=== PATIENT | female | born 1995 | race Caucasian/White ===

== ENCOUNTER 2024-11-22 08:39 | Outpatient (CLI) | payer BC ==
[2024-11-22 10:33] LABS: #Basophils 0.03 10x3/uL (0.0-0.2); %Basophils 0.4 % (0.0-1.0); %Eosinophils 1.4 % (0.0-10.0); %Lymphocytes 21.2 % (21.0-51.0); %Monocytes 6.8 % (0.0-10.0); %Neutrophils 70.1 % (42.0-75.0); Hematocrit 44.4 % (36.0-47.0); Hemoglobin 14.5 g/dL (12.0-16.0); Mean Corpuscular HGB CONC 32.7 g/dL (32.0-36.0); Mean Corpuscular Hemoglobin 28.7 pg (27.0-31.0); Mean Corpuscular Volume 87.9 fL (78.0-98.0); Mean Platelet Volume 11.2 fL (7.4-10.4); Platelet Count 269 10x3/uL (130-400); Red Blood Cell (RBC) Count 5.05 mill/uL (4.20-5.40)
[2024-11-22 11:05] LABS: Calc. Creatinine Clearance 0 mL/min (70-130); Estimated GFR 94
[2024-11-22 11:06] LABS: Anion Gap 11 mmol/L (10-20); BUN (Urea Nitrogen) 13 mg/dL (7.0-18.7); Calcium 9.4 mg/dL (7.8-10.44); Carbon Dioxide 24 mmol/L (22-29); Chloride 106 mmol/L (98-107); Glucose 80 mg/dL (70-105); Potassium 3.7 mmol/L (3.5-5.1); Sodium 137 mmol/L (136-145)
[2024-11-22 11:07] LABS: BHCG - Serum Negative (NEGATIVE); Pregs Control Background? CLEAR/WHITE (CLR/WHITE); Pregs Control Bar Appear? YES (CONTROL BAR)
== END 2024-11-22 08:40 | disposition home or self-care (01) ==
LOC: LABBT 08:39
PROVIDERS: ATTEND Orthopaedic Surgery
DX: Z01.818 Encounter for other preprocedural examination (principal); G56.22 Lesion of ulnar nerve, left upper limb
CPT/HCPCS: 80048; 84703; 85025; 93005; 93010

== ENCOUNTER 2024-11-26 05:40 | Day surgery (SDC) | payer BC ==
[2024-11-22 08:50] VITALS: BMI 33.3
[2024-11-26] MEDS ORDERED: Bupivacaine PF 0.5% 30 ML VIAL ONE (06:43)
[2024-11-26] MEDS ORDERED: Lidocaine 1% PF 5 ML VIAL ONE (06:47)
[2024-11-26] MEDS ORDERED: fentaNYL 50 mcg/mL 1 mL Vial ONE (06:47)
[2024-11-26] MEDS ORDERED: PROPOFOL 20 ML ONE (06:47)
[2024-11-26] MEDS ORDERED: CEFAZOLIN 2 GM VIAL ONE (07:15)
[2024-11-26] MEDS ORDERED: ePHEDrine Sulfate 50 MG/10 ML VIAL ONE (07:43)
[2024-11-26] MEDS ORDERED: Ondansetron PF 4 MG/2 ML Vial ONE (07:52)
[2024-11-26] MEDS ORDERED: Dexamethasone 20 MG/5 ML VIAL ONE (07:52)
[2024-11-26] MEDS ORDERED: HYDROcodone/Acetaminophen 5/325 mg Tablet ONE (09:58)
[2024-11-26] MEDS ORDERED: Morphine 2 MG/ML VIAL SLOW IVP PRN (14:15)
[2024-11-26] MEDS ORDERED: Promethazine HCl 25 MG/ML VIAL IVPB PRN (14:15)
[2024-11-26] MEDS ORDERED: Ondansetron PF 4 MG/2 ML Vial IVP PRN (14:15)
[2024-11-26] MEDS ORDERED: HYDROcodone/Acetaminophen 5/325 mg Tablet PO PRN ×2 (14:15)
[2024-11-26] MEDS ORDERED: Droperidol 5 MG/2 ML VIAL SLOW IVP PRN (14:16)
== END 2024-11-26 10:30 | disposition home or self-care (01) ==
LOC: SDC 05:40
PROVIDERS: ATTEND Orthopaedic Surgery
PROC: 01N40ZZ Release Ulnar Nerve, Open Approach (ICD-10-PCS; principal; 2024-11-26)
DX: G56.22 Lesion of ulnar nerve, left upper limb (principal); E03.9 Hypothyroidism, unspecified; F32.A Depression, unspecified; F41.9 Anxiety disorder, unspecified; J45.909 Unspecified asthma, uncomplicated; Z87.59 Personal history of other complications of pregnancy, childbirth and the puerperium; Z79.890 Hormone replacement therapy; Z79.899 Other long term (current) drug therapy
CPT/HCPCS: J0665; J1100; J2405; J2704; J3010